=== PATIENT | male | born 1970 | race Caucasian/White ===

== ENCOUNTER 2023-08-25 22:57 | Emergency (ER) | payer OTHER ==
[~2023-08-25] VITALS: Ht 170 cm; Wt 82.0 kg
[~2023-08-25 22:57] MED LIST: ASPI-999 PO; ATOR20TA66 PO; AZIT-21 PO; Aspirin PO; Atorvastatin Calcium PO; CEPH500C PO; CLOP75TA28 PO; CLPD75T PO; CRV6.25T PO; NAPR-243 PO; NITR1PAT3 TOP; PENI500T PO; TRM50T PO
[2023-08-25] MEDS ORDERED: MTP25TSR (23:09)
[2023-08-25] MEDS ORDERED: RANO10005 (23:09)
[2023-08-25] MEDS ORDERED: NITR0.4T42 (23:09)
--- NOTE | 2023-08-25 23:13 | ED General ---
General Chief Complaint: Cardiac/General Problems Stated Complaint: DENTAL PAIN - HIGH BP - ABD PAIN Source of Information: Patient Exam Limitations: No Limitations History of Present Illness Date Seen by Provider: Aug 25, 2023 Time Seen by Provider: 23:13 Initial Comments Patient is a 52-year-old male who presents to the emergency department with a chief complaint of facial swelling due to dental pain, concern for high blood pressure and feeling nauseous. Patient has had dental pain for the last 24 to 48 hours. He visited the emergency dental clinic this morning and they advised him there was nothing they could do, he went over to the general walk-in and they put him on Augmentin this morning. He has been taking 800 mg of ibuprofen every 6 hours as well as at 1000 mg of acetaminophen with no relief of symptoms. He is also been using what sounds like a chlorhexidine oral rinse. He rates the pain a "7 or 8". He is concerned because he is due to see his cardi othoracic surgeon tomorrow for evaluation for cardiac bypass surgery. He states his blood pressure is significantly higher this evening than it normally runs. He is in the systolic 150 range and normally is in 1 10-1 20 range. He denies chest pain or shortness of breath. He has had a "tingly sensation" all over off and on all day today. He states this has been going on for years but normally lasts a short time and goes away after he eats. He was slightly concerned that its been persistent. He states he is a little nauseous, likely due to starting the Augmentin prescription. No shortness of breath. No fever. He has had a ch ronic cough for the last few months. He is a heavy smoker. 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 He is not due to go back to work until Friday. Timing/Duration: 1-2 Days Severity: Severe Associated Systoms: Other (nauseated) Allergies and Home Medications Allergies Coded Allergies: No Known Drug Allergies (Unverified , 01/27/11) Patient Home Medication List Home Medication List Reviewed: Yes Aspirin (Aspirin) 81 Mg Tab.chew, 81 MG PO ONCE Prescribed by: KENRICK PENA on 05/07/16924 Atorvastatin Calcium (Atorvastatin Calcium) 20 Mg Tablet, 40 MG PO HS Prescribed by: KENRICK PENA on 05/07/16924 Metoprolol Succinate (Metoprolol Succinate) 25 Mg Tab.er.24h, (Reported) Entered as Reported by: UMAIR MARTINEZ on 08/25/232308 Last Action: New Order Metronidazole (Metronidazole) 500 Mg Tablet, 500 MG PO TID Prescribed by: DENNIS BOSE on 08/25/232340 Nitroglycerin (Nitroglycerin) 0.4 Mg Tab.subl, (Reported) Entered as Reported by: UMAIR MARTINEZ on 08/25/232308 Last Action: New Order Ondansetron (Ondansetron Odt) 4 Mg Tab.rapdis, 4 MG SL Q8H PRN for NAUSEA/VOMITING Prescribed by: DENNIS BOSE on 08/25/232340 Ranolazine (Ranolazine ER) 1,000 Mg Tab.er.12h, (Reported) Entered as Reported by: UMAIR MARTINEZ on 08/25/232308 Last Action: New Order Discontinued Medications Clopidogrel Bisulfate (Clopidogrel) 75 Mg Tablet, 75 MG PO ONCE Discontinued Reason: No Longer Taking Prescribed by: KENRICK PENA on 05/07/16924 Last Action: Discontinued Review of Systems Review of Systems Constitutional: see HPI EENTM: other (left upper and lower jaw pain/dental pain/ facial swelling left) Respiratory: cough Cardiovascular: no symptoms reported Gastrointestinal: nausea, vomiting (x1) Genitourinary: no symptoms reported Musculoskeletal: no symptoms reported Skin: no symptoms reported Psychiatric/Neurological: Paresthesia Past Nxccnng-Jixbmt-Rczzzm Hx Patient Social History Tobacco Use?: Yes Substance use?: No Alcohol Use?: Yes Pt feels they are or have been: No Immunizations Up To Date Tetanus Booster (TDap): Less than 5yrs Past Medical History Surgery/Hospitalization HX: cardiac stents, hld, mi, htn, angina, hld Heart Attack Reproductive Disorders: No Adverse Reaction/Blood Tranf: No Physical Exam Vital Signs Vital Signs - First Documented 08/25/23 23:02 Temp 36.5 Pulse 58 Resp 16 B/P (MAP) 154/88 (110) Pulse Ox 98 O2 Delivery Room Air Capillary Refill : Height, Weight, BMI Height: 5'7.00" Weight: 180lbs. 0.0oz. [id number]; 28.2 BMI Method:Stated General Appearance: No Apparent Distress, WD/WN Eyes: Bilateral Eye Normal Inspection, Bilateral Eye PERRL, Bilateral Eye EOMI HEENT: Other (diffusely carious teeth; widespread gingivitis; fractures, necrotic left posterior molar - no gingival swelling or fluctuance. tender in the maxilla as well. percissive tenderness to the fractured tooth.) Neck: Normal Inspection, Supple Respiratory: Lungs Clear, No Accessory Muscle Use Cardiovascular: Regular Rate, Rhythm, Normal Peripheral Pulses Gastrointestinal: Non Tender, Soft Extremity: Normal Inspection, Normal Range of Motion, No Pedal Edema Neurologic/Psychiatric: Alert, Oriented x3, No Motor/Sensory Deficits, Normal Mood/Affect Skin: Normal Color, Warm/Dry Progress/Results/Core Measures Suspected Sepsis SIRS Temperature: Pulse: Respiratory Rate: Blood Pressure / Mean: Results/Orders My Orders Orders - DENNIS BOSE MD Morphine Injection (Morphine Injection (08/25/23 23:31) Ondansetron Oral Dissolve Tab (Ondanset (08/25/23 23:35) Rx-Hydrocodone/Apap 5-325 Mg (Rx-Vicodin (08/26/23 00:00) Medications Given in ED Current Medications Medications Dose Ordered Sig/Carlos Route Start Time Stop Time Status Last Admin Dose Admin Acetaminophen/ Hydrocodone Bitart 1 ea Q4H PRN PO 08/26/23 00:00 08/25/23 23:59 1 EA Vital Signs/I&O 08/25/23 23:02 Temp 36.5 Pulse 58 Resp 16 B/P (MAP) 154/88 (110) Pulse Ox 98 O2 Delivery Room Air Capillary Refill : Progress Note : Time: 23:43 Progress Note Patient seen and evaluated by me. Evaluation today includes history and physical. Pertinent physical exam findings well-developed well-nourished male in mild distress due to left sided mandibular swelling and pain. He has widespread necrotic/carious teeth. Percussive tenderness to the posterior lower left jaw at the area of a fractured molar. No gingival swelling or fluctuance. He has widespread gingivitis. He has erythema to the posterior pharynx. No anterior cervical lymphadenopathy. Differential diagnosis gingivitis, dental abscess Patient is treated with 5 mg of morphine IM and 8 mg of ondansetron p.o. He is given 4 tablets of hydrocodone for home use. He is educated on dosing of this. I advised that he change from ibuprofen to Aleve and always take it with food. Other methods for pain management and swelling were discussed with the patient. Return precautions provided. He verbalized understanding of the discharge instructions and is comfortable with plan of care. All questions are sought and answered. Counseling-Symptomatic: 3-10 Minutes Discussed Options Including: Hypnosis Follow-up with PCP to: Discuss Further Options Departure Impression Primary Impression: odontogenic infection Disposition: 01 HOME, SELF-CARE Condition: Stable Departure-Patient Inst. Decision time for Depature: 23:40 Referrals: [facility] [place] Primary Care Physician Patient Instructions: Dental Pain ED Add. Discharge Instructions: Instead of increasing your amoxicillin prescription I have prescribed you a second antibiotic which is very good for dental infections. Metronidazole/Flagyl 500 mg tablets take 1 3 times a day for the next 7 days. Continue your oral rinse. Instead of ibuprofen take 2 generic Aleve with food twice a day for pain. You can also warm a tea bag and hold that between your teeth on the area which can help with pain and inflammation. An ice pack to the jaw can help with swelling. I have given you 4 hydrocodone tablets for home. You can take this (1 at a time every 6 hours) with the Aleve or Tylenol. If you develop worsening swelling or fever or pain 48 hours after starting antibiotics please return to the emergency department for reevaluation. Scripts Metronidazole (Metronidazole) 500 Mg Tablet 500 MG PO TID for 7 Days, #21 TAB Prov: DENNIS BOSE MD 08/26/23 Ondansetron (Ondansetron Odt) 4 Mg Tab.rapdis 4 MG SL Q8H PRN for NAUSEA/VOMITING, #12 TAB Prov: DENNIS BOSE MD 08/26/23 Copy Copies To 1: KRISTEN ANDERSON KATHRYN M MD Aug 25, 2023 23:13
[2023-08-25] MEDS ORDERED: morphine INJ 10 MG/ML 1ML (SYR OR VIAL) IM STA (23:31)
[2023-08-25] MEDS ORDERED: ONDANSETRON 4 MG ORAL DISSOLVE TABLET PO STA (23:35)
[2023-08-25] MEDS ORDERED: ONDA4TAB11 SL (23:41)
[2023-08-25] MEDS ORDERED: METR-145 PO (23:41)
[2023-08-26 00:01] VITALS: BP 161/87
[2023-08-26] MEDS ORDERED: METR-145 PO (00:06)
[2023-08-26] MEDS ORDERED: ONDA4TAB11 SL (00:06)
== END 2023-08-26 00:05 | disposition home or self-care (01) ==
LOC: EDUNIT# 22:57 → ER 22:59
DX: M27.2 Inflammatory conditions of jaws (principal); F17.200 Nicotine dependence, unspecified, uncomplicated
CPT/HCPCS: 96372; 99284